=== PATIENT | female | born 1930 | race Caucasian/White ===

== ENCOUNTER → 2016-12-30 | Day surgery (SDC) | payer MEDICARE, OTHER ==
[~2016-12-30] MED LIST: ASPIRIN81 M2 PO; GLUCOTROL PO; JANUVIA PO; LEVOTHYROXINE50 MCG PO; NEURONTIN300 MG PO; SIMVASTATIN40 MG PO; TOPROL XL PO; ZESTRIL10 M1 PO; ZETIA PO
--- NOTE | ~2016-12-30 | OR ---
Unit #: [id number] #: [id number] Patient: MAXIME SANDERS [id number] [address] [place], [place] [address] [id number] O MR#: [id number] NAME: MAXIME SANDERS ROOM: Date of Procedure: 12/30/2016 Admission Date: 12/30/2016 Surgeon: Luis Antonio Brooke M.D. : 1930 Attending Physician: Luis Antonio Brooke M.D. Primary Care Physician: Key Arce M.D. SUR[facility] CENTER OPERATIVE NOTE PROCEDURE PERFORMED Lumbar epidural steroid injection under x-ray guided needle placement with provider administered conscious sedation. PREOPERATIVE DIAGNOSES 1. Acute lumbar radiculitis. 2. Spinal stenosis, lumbosacral spine. 3. Degenerative joint disease, lumbosacral spine. 4. Degenerative disk disease, lumbosacral spine. INDICATIONS FOR PROCEDURE The patient presents today with longstanding history of chronic lumbar radicular pain secondary to her underlying degenerative processes. She is generally fairly well managed medically with ongoing and continuous conservative measures; however, she does occasionally experience exacerbations, which to date have only responded to epidural steroid injections. Her usual response is 60% to 80% for 6 to 8 weeks. She is currently experiencing just such an exacerbation which has been advancing in a crescendo pattern for the last 6 to 8 weeks and has reached a point where it is interfering with her usual activities of daily living. After discussing risks and benefits proceeding today with a lumbar approach epidural steroid injection utilizing dual needle technique, the patient agreed this would be the appropriate course of action. DESCRIPTION OF PROCEDURE She was then taken to the operating room, where she was prepped and draped in a sterile manner. Standard monitors were applied. She was sedated with 1 mg of IV Versed and lumbar epidural space accessed at the L4-L5 and L2-L3 levels using loss of resistance technique and x-ray guidance. Needle placement was confirmed with injection of 2 mL of Omnipaque at each level. At the L4-L5 level, approximately 80% flow was in the superior level. At the L2-L3 level, approximately 60% to 80% of the dye flow was in the superior level. We got good coverage of all levels with some minimal coverage of the L5-S1 level. Following successful needle placement confirmation which required 9 seconds of x-ray time, the patient received an injectate containing 4 mL normal saline and 40 mg of methylprednisolone at each level for a total injectate volume of 8 mL of normal saline and 80 mg of methylprednisolone. She tolerated this procedure well. She was discharged home with followup instructions, which include an offer to return to this clinic as early as 04/21/2017 if we could be of further service. Unit #: [id number] #: [id number] Patient: MAXIME SANDERS Dictated by... Mary Chapin/rodney TD: 12/31/2016 04:59 JOB #: [id number] [facility]ENTER OPERATIVE NOTE Page 1 of 1 X Daniel Brooke MD X PROCEDURE OPERATIVE NOTE
== END | disposition home or self-care (01) ==
LOC: CCSC 10:48
DX: G89.29 Other chronic pain (principal); M51.17 Intervertebral disc disorders with radiculopathy, lumbosacral region; M48.07 Spinal stenosis, lumbosacral region; Z88.0 Allergy status to penicillin; Z88.5 Allergy status to narcotic agent; Z88.8 Allergy status to other drugs, medicaments and biological substances; Z90.710 Acquired absence of both cervix and uterus; Z98.890 Other specified postprocedural states
CPT/HCPCS: J1040; J2250

== ENCOUNTER → 2017-04-21 | Day surgery (SDC) | payer MEDICARE, OTHER ==
--- NOTE | ~2017-04-21 | OR ---
Unit #: [id number] #: [id number] Patient: MAXIME SANDERS [id number] [address] [place], [place] [address] [id number] O MR#: [id number] NAME: MAXIME SANDERS ROOM: Date of Procedure: 04/21/2017 Admission Date: 04/21/2017 Surgeon: Luis Antonio Brooke M.D. : 1930 Attending Physician: Daniel Brooke Referring Physician: Daniel Brooke Primary Care Physician: Key Arce M.D. SUR[facility] CENTER OPERATIVE NOTE PROCEDURE PERFORMED Lumbar epidural steroid injection under x-ray guided needle placement with provider administered conscious sedation. PREOPERATIVE DIAGNOSES 1. Acute lumbar radiculitis. 2. Spinal stenosis, lumbosacral spine. 3. Degenerative joint disease, lumbosacral spine. 4. Degenerative disk disease, lumbosacral spine. INDICATIONS FOR PROCEDURE The patient presents today with longstanding history of chronic lumbar radicular pain secondary to her underlying degenerative processes. She is generally fairly well managed medically, but does occasionally experience exacerbations, which to date do not respond to her ongoing medical treatment as well as negatively impacts her activities of daily living. Her usual amount of relief was approximately 60% for 6 weeks. After discussing risks and benefits of proceeding today with an epidural steroid injection for her current exacerbation, the patient agreed this would be the appropriate course of action. DESCRIPTION OF PROCEDURE She was then taken to the operating room, where she was prepped and draped in a sterile manner. Standard monitors were applied. She was sedated with 1 mg of IV Versed and lumbar epidural space accessed at the L4-L5 level using loss of resistance technique and x-ray guidance. With the injection of less than half a mL, the patient experienced severe pain in the right lower extremity that needle was then withdrawn, the pain resolved and the needle was again placed at the L4-L5 level with more leftward positioning. Again, however, the patient experienced right-sided lower extremity pain with just a minimal amount of IV dye with x-ray dye injection. Following this, needle was withdrawn, replaced at L3-L4 level with very little trouble using loss of resistance technique and x-ray guidance. Needle placement at that level was confirmed with the injection of 2 mL of Omnipaque. Approximately 80% of dye flow at that level was in the superior direction. Therefore, next visit will most likely attempt at an L5-S1 and then depend up on superior flow either to a single L5-S1 or potential dual needle technique. Following successful needle placement confirmation today, the patient received an injectate containing 4 mL of normal saline, 80 mg of methylprednisolone. Total x-ray time today's procedure was 8 seconds. She tolerated today's procedure very well. She was discharged home with followup instructions, which include return to this clinic as early as 07/28/2017 if we could be Unit #: [id number] #: [id number] Patient: MAXIME SANDERS of further service. She was given the usual instruction if she was asymptomatic at that time to simply not keep that appointment and/or if she felt little benefit to return to her primary care and/or referring provider and inform them that she was not benefitting from treatment at this clinic and hopefully to receive differing referral/consulting. Dictated by... Mary Chapin/rodney TD: 04/22/2017 10:27 JOB #: [id number] [facility] OPERATIVE NOTE Page 1 of 1 X Daniel Brooke MD X PROCEDURE OPERATIVE NOTE
== END | disposition home or self-care (01) ==
LOC: CCSC 08:45
DX: M47.27 Other spondylosis with radiculopathy, lumbosacral region (principal); M51.17 Intervertebral disc disorders with radiculopathy, lumbosacral region; M48.07 Spinal stenosis, lumbosacral region
CPT/HCPCS: 82947; J1040; J2250